=== PATIENT | male | born 1990 | race Caucasian/White ===

== ENCOUNTER 2018-12-11 07:10 | Inpatient (IN) | payer MEDICAID ==
[~2018-12-11] VITALS: Ht 182.9 cm; Wt 125.8 kg
[2018-12-11 07:17] VITALS: Ht 182.9 cm; Wt 125.8 kg
[2018-12-11 07:48] LABS: CALCIUM 9.3 mg/dL (8.5-10.1); CARBON DIOXIDE 24.2 mmol/L (21-32); CHLORIDE SERUM 100 mmol/L (98-107); GFR1 > 60 mL/min; GLUCOSE SERUM 112 mg/dL (74-106); POTASSIUM SERUM 4.2 mmol/L (3.5-5.1); SODIUM SERUM 134 mmol/L (136-145)
[2018-12-11 07:53] LABS: ALBUMIN 4.4 g/dL (3.4-5.0); ALKALINE PHOSPHATASE 90 U/L (46-116); ALT/SGPT 48 U/L (16-63); AST/SGOT 18 U/L (15-37); BILIRUBIN TOTAL 0.61 mg/dL (0.20-1.00); LIPASE 60 IU/L (73-393)
[2018-12-11 07:57] LABS: BASOPHIL % 0.5 % (0-2); PLATELET COUNT 313 x10^3mcL (130-400); RED CELL DISTRIBUTION WIDTH 13.1 % (11.5-14.5)
[2018-12-11 11:25] VITALS: BP 122/62
[2018-12-11 21:50] VITALS: BP 107/65
[2018-12-12 05:59] VITALS: BP 101/57
[2018-12-12 06:48] LABS: PLATELET COUNT 228 x10^3mcL (130-400); RED CELL DISTRIBUTION WIDTH 13.5 % (11.5-14.5)
[2018-12-12 06:50] LABS: CALCIUM 8.9 mg/dL (8.5-10.1); CARBON DIOXIDE 24.3 mmol/L (21-32); CHLORIDE SERUM 100 mmol/L (98-107); CREATININE SERUM 0.9 mg/dL (0.7-1.3); GFR1 > 60 mL/min; GLUCOSE SERUM 114 mg/dL (74-106); POTASSIUM SERUM 3.9 mmol/L (3.5-5.1); SODIUM SERUM 135 mmol/L (136-145)
[2018-12-12 07:54] LABS: BASOPHIL % 0 % (0-2)
[2018-12-12 08:09] VITALS: BP 113/63
[2018-12-12 11:48] VITALS: BP 117/63
[2018-12-12] MEDS ORDERED: AUG500 PO (11:54)
[2018-12-12 12:06] VITALS: BP 117/63
== END 2018-12-12 13:28 | disposition home or self-care (01) | DRG 234 ==
LOC: ED 07:10 → MU 09:35
PROVIDERS: Emergency Medicine; Surgery; ADMIT Family Medicine
PROC: 0DTJ4ZZ Resection of Appendix, Percutaneous Endoscopic Approach (ICD-10-PCS; principal; 2018-12-11 15:00)
DX: K35.891 Other acute appendicitis without perforation, with gangrene (principal); E87.1 Hypo-osmolality and hyponatremia; E66.9 Obesity, unspecified; D72.829 Elevated white blood cell count, unspecified; F17.210 Nicotine dependence, cigarettes, uncomplicated; Z68.37 Body mass index [BMI] 37.0-37.9, adult
CPT/HCPCS: 90658; J0330; J0696; J1885; J2250; J2270; J2704; J2710; J3010; J3490; J7030; J7042; J7120; Q9967